=== PATIENT | female | born 1990 | race African-American/Black ===

== ENCOUNTER 2021-05-21 14:38 | Emergency (ER) | payer MEDICAID ==
[~2021-05-21] VITALS: Ht 175.3 cm; Wt 86.2 kg
[2021-05-21] MEDS: HYDROCODONE/APAP 10-325 MG TABLET PO ONE (15:00)
[2021-05-21] MEDS ORDERED: HYDROCODONE/APAP 10-325 MG TABLET ONE (15:07)
[2021-05-21] MEDS ORDERED: HYDR-4209 PO (16:06)
[2021-05-21] MEDS ORDERED: IBUP-1955 PO (16:06)
--- NOTE | 2021-05-21 16:30 | NUR ---
Patient discharged to home in stable condition. Written and verbal after care instructions given. Patient verbalizes understanding of instructions. Stressed follow up or return to ER for worsening s/s.
== END 2021-05-21 16:57 | disposition home or self-care (01) ==
LOC: ER 14:38
DX: S89.92XA Unspecified injury of left lower leg, initial encounter (principal); Z79.1 Long term (current) use of non-steroidal anti-inflammatories (NSAID); Z79.899 Other long term (current) drug therapy; X58.XXXA Exposure to other specified factors, initial encounter; Y93.89 Activity, other specified; Y92.89 Other specified places as the place of occurrence of the external cause; Y99.8 Other external cause status
CPT/HCPCS: A4663